=== PATIENT | female | born 1980 | race Caucasian/White ===

== ENCOUNTER 2021-01-12 10:22 | Inpatient (IN) ==
[2021-01-06 11:16] LABS: Basophils # 0.1 10*3/uL (0.0-0.2); Basophils % 0.5 % (0.0-0.8); Eosinophils # 0.2 10*3/uL (0.0-0.87); Hematocrit 40.6 VOL% (35.7-47.0); Hemoglobin 13.1 GM/DL (12.0-16.0); Immature Granulocytes % 0.6 %; Immature Granulocytes Absolute 0.06 #; Lymphocytes # 2.9 10*3/uL (1.4-4.0); Lymphocytes % 26.6 % (21.3-54.2); Mean Corpuscular HGB Conc 32.3 GM/DL (32-36); Mean Corpuscular Volume 85.7 FL (87-102); Mean Platelet Volume 10.8 FL (9.6-12.0); Monocytes % 4.4 % (1.7-12.7); Neutrophils % 65.9 % (38.7-73.9); Platelet Count 352 T/CUMM (130-400); Red Blood Count 4.74 MC/CUMM (3.8-5.5); Red Cell Distribution Width 13.9 % (9.3-17.3); White Blood Count 10.9 T/CUMM (4-12)
[2021-01-06 11:23] LABS: Bacteria,Urine Occasional /HPF (Few); Bilirubin,Urine Negative (Negative); Blood, Urine Small mg/dL (Negative); Glucose,Urine (UA) Negative (Negative); Ketones,Urine Negative (Negative); Mucus,Urine Occasional /LPF (Occasional); Nitrite,Urine Negative (Negative); Protein,Urine Negative; RBC,Urine 1 /HPF (0-4); Squamous Epithelial Cell,Urine Few /HPF (0-10); Urine Appearance Slightly Hazy (Clear); Urine Color Amber (Yellow); Urine Specific Gravity 1.017 (1.001-1.035); Urine Urobilinogen < 2.0 EU/DL (0.2-1.0)
[2021-01-06 11:37] LABS: Bilirubin,Total 0.5 MG/DL (0.20-1.00); Calcium 8.9 MG/DL (8.5-10.1); Osmolality,Calculated 278.5 MOS/KG (273-304); Potassium 4.1 MMOL/L (3.5-5.1); Risk Ratio 3.9; Total Protein 7.4 G/DL (6.4-8.2); VLDL Cholesterol 24.2 MG/DL
[2021-01-06 12:06] LABS: HIV Antigen/Antibody Result Nonreactive (Nonreactive)
[~2021-01-12 10:22] MED LIST: AMPICILLIN/SULBACTAM 3,000 MG in SODIUM CHLORIDE 0.9% 100 ML IV ONE
[2021-01-12] MEDS ORDERED: DIAZEPAM 5 MG TABLET PO ONE (10:52)
[2021-01-12] MEDS ORDERED: SCOPOLAMINE 1.5 MG PATCH TRANSDERM ONE (10:52)
[2021-01-12] MEDS ORDERED: ACETAMINOPHEN 500 MG TABLET PO ONE (10:52)
[2021-01-12] MEDS ORDERED: LACTATED RINGERS 1,000 ML IV SCH ×2 (11:00→16:00)
[2021-01-12] MEDS ORDERED: ROCURONIUM 50 MG/5 ML VIAL IV ONE (13:10)
[2021-01-12] MEDS ORDERED: ONDANSETRON 4 MG/2 ML VIAL ONE (13:10)
[2021-01-12] MEDS ORDERED: propofoL 200 MG/20 ML VIAL IV ONE (13:10)
[2021-01-12] MEDS ORDERED: SEVOFLURANE 1 UNIT/15 MINUTE INH ONE (13:10)
[2021-01-12] MEDS ORDERED: fentaNYL 100 MCG/2 ML VIAL ONE ×2 (13:10→14:30)
[2021-01-12] MEDS ORDERED: LIDOCAINE 2% 5 ML VIAL ONE (13:10)
[2021-01-12] MEDS ORDERED: MIDAZOLAM 2 MG/2 ML VIAL ONE (13:10)
[2021-01-12] MEDS ORDERED: DEXAMETHASONE 4 MG/1 ML VIAL ONE (13:27)
[2021-01-12] MEDS ORDERED: LIDOCAINE 1% 5 ML VIAL ONE (13:27)
[2021-01-12] MEDS ORDERED: ROPIVACAINE 0.5% 30 ML VIAL ONE (13:28)
[2021-01-12] MEDS ORDERED: PROMETHAZINE 25 MG/1 ML VIAL ONE (13:57)
[2021-01-12] MEDS ORDERED: KETOROLAC 30 MG/1 ML VIAL ONE (14:01)
[2021-01-12] MEDS ORDERED: NEOSTIGMINE 10 MG/10 ML VIAL ONE (15:11)
[2021-01-12] MEDS ORDERED: BENZOCAINE/MENTHOL LOZENGE 18/BOX PO PRN (15:41)
[2021-01-12] MEDS ORDERED: ACETAMINOPHEN 325 MG TABLET PO PRN (15:41)
[2021-01-12] MEDS ORDERED: BISACODYL 10 MG SUPP RECTAL PRN (15:41)
[2021-01-12] MEDS ORDERED: ONDANSETRON 4 MG/2 ML VIAL IV PRN ×2 (15:41→16:21)
[2021-01-12] MEDS ORDERED: HYDROmorphone 2 MG/1 ML VIAL IV PRN (15:42)
[2021-01-12] MEDS: HYDROmorphone 2 MG/1 ML VIAL IV PRN ×2 (16:25→16:40)
[2021-01-12] MEDS ORDERED: KETOROLAC 30 MG/1 ML VIAL IV ONE (18:30)
[2021-01-12] MEDS: DOCUSATE SODIUM 100 MG CAPSULE PO PRN (20:32)
[2021-01-13 05:30] LABS: Basophils % 0.1 % (0.0-0.8); Hematocrit 33.5 VOL% (35.7-47.0); Hemoglobin 10.9 GM/DL (12.0-16.0); Immature Granulocytes % 0.6 %; Immature Granulocytes Absolute 0.09 #; Lymphocytes # 1.4 10*3/uL (1.4-4.0); Lymphocytes % 8.4 % (21.3-54.2); Mean Corpuscular HGB Conc 32.5 GM/DL (32-36); Mean Corpuscular Volume 86.8 FL (87-102); Mean Platelet Volume 10.6 FL (9.6-12.0); Monocytes % 4.4 % (1.7-12.7); Neutrophils % 86.5 % (38.7-73.9); Platelet Count 323 T/CUMM (130-400); Red Blood Count 3.86 MC/CUMM (3.8-5.5); Red Cell Distribution Width 14.1 % (9.3-17.3); White Blood Count 16.1 T/CUMM (4-12)
[2021-01-13] MEDS: METOCLOPRAMIDE 10 MG TABLET PO SCH ×2 (07:53→15:18)
[2021-01-13] MEDS: MAGNESIUM HYDROXIDE SUSP 30 ML UDCUP PO PRN ×2 (07:53→21:11)
[2021-01-13] MEDS: DOCUSATE SODIUM 100 MG CAPSULE PO PRN ×2 (07:54→21:11)
[2021-01-13] MEDS: SIMETHICONE CHEW 80 MG TABLET PO PRN ×2 (07:56→21:11)
[2021-01-13] MEDS ORDERED: FLUCONAZOLE 150 MG TABLET PO ONE (09:42)
[2021-01-13] MEDS: IBUPROFEN 800 MG TABLET PO PRN ×2 (10:41→21:11)
[2021-01-13] MEDS ORDERED: SERTRALINE 100 MG TABLET PO SCH (21:00)
[2021-01-14] MEDS: METOCLOPRAMIDE 10 MG TABLET PO SCH ×2 (00:10→09:40)
[2021-01-14] MEDS: IBUPROFEN 800 MG TABLET PO PRN (06:15)
[2021-01-14 09:04] VITALS: BP 116/58
[2021-01-14] MEDS: SIMETHICONE CHEW 80 MG TABLET PO PRN (09:40)
[2021-01-14] MEDS: DOCUSATE SODIUM 100 MG CAPSULE PO PRN (09:40)
== END 2021-01-14 10:30 | disposition home or self-care (01) | DRG 743 ==
LOC: N.SDSINP 10:22 → N.OR 10:22 → N.SDSINP 10:31 → EDSTATUS 15:30 → N.SDSINP 15:40 → N.OB 17:28
PROVIDERS: ADMIT Obstetrics & Gynecology; ATTEND Obstetrics & Gynecology